=== PATIENT | female | born 1995 | race Caucasian/White ===

== ENCOUNTER 2016-10-20 15:15 | Emergency (ER) | payer BC ==
[~2016-10-20] VITALS: Ht 152.4 cm; Wt 55.5 kg
[2016-10-20] MEDS ORDERED: SODIUM CHLORIDE FLUSH 10ML SYR IVF ONE (15:30)
[2016-10-20] MEDS ORDERED: ONDANSETRON 2MG/ML, 2ML IVPush ONE (15:30)
[2016-10-20] MEDS ORDERED: SODIUM CHLORIDE 0.9% 1,000ML IVBOLUS ONE (15:30)
[2016-10-20 16:00] LABS: BLOOD UREA NITROGEN 9 mg/dL (7-18)
[2016-10-20] MEDS ORDERED: KETOROLAC 30 MG/1 ML ONE (16:21)
[2016-10-20] MEDS ORDERED: ONDANSETRON 2MG/ML, 2ML ONE (16:21)
[2016-10-20] MEDS ORDERED: KETOROLAC 30 MG/1 ML IVPush ONE (16:30)
[2016-10-20 17:14] LABS: IS PT STATUS REG ER OR PRE ER? YES
[2016-10-20 17:18] LABS: PATH.CAST-FLAG NOT PRESENT; SPERM-FLAG NOT PRESENT; SRC-FLAG NOT PRESENT; XTAL-FLAG NOT PRESENT; YLC-FLAG NOT PRESENT
[2016-10-20 17:55] VITALS: BP 123/78
== END 2016-10-20 18:15 | disposition home or self-care (01) ==
LOC: ED 18:09
DX: N92.0 Excessive and frequent menstruation with regular cycle (principal); R55 Syncope and collapse; R10.30 Lower abdominal pain, unspecified
CPT/HCPCS: 36415; 71010; 76830; 80048; 81001; 82040; 84484; 84703; 85025; 86901; 93005; 96374; 96375; 99285; J1885; J2405